=== PATIENT | male | born 1965 ===

== ENCOUNTER 2022-06-16 06:00 | Day surgery (SDC) | payer OTHER ==
[~2022-06-16] VITALS: Ht 180.3 cm; Wt 86.2 kg
[~2022-06-16 06:00] MED LIST: ATORVASTATIN CA10 MG PO; AVAPRO150 MG PO
[2022-06-16] MEDS ORDERED: PERCOCET 5-3251 EACH PO (16:14)
== END 2022-06-16 19:50 | disposition home or self-care (01) ==
LOC: CIR.AMB 06:00
PROVIDERS: ATTEND Surgery
DX: N52.01 Erectile dysfunction due to arterial insufficiency (principal); Z20.822 Contact with and (suspected) exposure to COVID-19; I10 Essential (primary) hypertension
CPT/HCPCS: 54405; C1813